=== PATIENT | female | born 1975 | race African-American/Black ===

== ENCOUNTER 2018-11-18 16:03 | Inpatient (IN) ==
[2018-11-18] MEDS ORDERED: SODIUM CHLORIDE 0.9% 1000ML 1,000 ML IV ONE (16:19)
[2018-11-18] MEDS ORDERED: GI COCKTAIL ED USE PO ONE (16:19)
[2018-11-18] MEDS ORDERED: ASPIRIN CHEW 324 MG PO STA (16:19)
--- NOTE | 2018-11-18 16:34 | XRay Report ---
XR chest 1V portable CLINICAL HISTORY: Atypical chest pain COMPARISON STUDY: No previous studies for comparison. FINDINGS: The cardiac and mediastinal contours are normal. There is no evidence of focal pulmonary co nsolidation. There is no evidence of failure. No pleural effusions are visualized.[ IMPRESSION: No active disease in the chest. Electronically signed by: Kishan Rome M.D. 11/18/2018 4:32 PM
[2018-11-18] MEDS ORDERED: NITROGLYCERIN SL 0.4 MG/TAB TAB SL STA (17:05)
[2018-11-18 17:55] LABS: Basophils # (auto) 0.02 K/uL (0-0.2); Basophils % (auto) 0.3 %; Eosinophils # (auto) 0.04 K/uL (0-0.5); Eosinophils % (auto) 0.6 %; Hematocrit (blood only) 41.6 % (37-47); Hemoglobin 14.2 g/dL (12.0-16.0); Immature Granulocytes # (auto) 0.01 K/uL (0.00-0.02); Immature Granulocytes % (auto) 0.1 %; Lymphocytes # (auto) 1.71 K/uL (1.2-3.4); Lymphocytes % (auto) 23.7 %; Mean Corpuscular Hgb Conc 34.1 g/dL (32-36); Mean Corpuscular Volume 89.3 fL (80-100); Mean Platelet Volume 10.7 fL (7.4-10.4); Monocytes # (auto) 0.43 K/uL (0.11-0.59); Neutrophils % (auto) 69.3 %; Platelet Count 179 K/uL (130-400); RDW Coefficient of Variation 13.4 % (11.5-14.5); RDW Standard Deviation 43.6 fL (36.4-46.3); Red Blood Count 4.66 M/uL (4.2-5.4); White Blood Count 7.21 K/uL (4.8-10.8)
[2018-11-18 18:14] LABS: Albumin Level 4.1 gm/dl (3.4-5.0); BUN Creatinine Ratio 11.1 (10-20); Calcium 9.6 mg/dl (8.5-10.1); Creatinine Clr Calc Pharmacy 112.2 ml/min; Est GFR (African American) 113.4; Est GFR (Non-African American) 97.8; Potassium 3.9 mmol/L (3.5-5.1)
[2018-11-18] MEDS ORDERED: Heparin IV Low Dose WITH Bolus STA (18:23)
[2018-11-18 18:24] LABS: Albumin Globulin Ratio 0.9 (0.9-2); Bilirubin,Total 0.3 mg/dl (0.2-1); Globulin 4.5 gm/dl (2.5-4.0); Total Protein 8.6 gm/dl (6.4-8.2); Troponin I 2.52 ng/ml (0-0.045)
[2018-11-18] MEDS ORDERED: METOPROLOL TARTRATE 1 MG/ML VIAL IV STA (18:29)
[2018-11-18] MEDS ORDERED: MoRPHine SULFATE 4 MG/ML 1 ML CARP\\VIAL IV STA (18:33)
[2018-11-18] MEDS ORDERED: fentaNYL citrate 100 MCG/2 ML VIAL IV STA (18:38)
[2018-11-18] MEDS ORDERED: HEPARIN 25000 UNIT/500 ML D5W IV ONE (19:01)
[2018-11-18 19:07] LABS: Partial Thromboplastin Ratio 0.9; Partial Thromboplastin Time 23.6 Seconds (21.0-31.0)
[2018-11-18] MEDS ORDERED: NITROGLYCERIN 2% OINTMENT 30GM TUBE EXT SCH (19:15)
--- NOTE | 2018-11-18 19:21 | History & Physical Report ---
Date of Service November 18, 2018 Assessment & Plan (1) Non-ST elevation [place] (NSTEMI): presented with chest pain, troponin 2.2 use Morphine and Nitro paste to relieve chest pain start metoprolol 25mg BID since blood pressure and HR elevated cycle troponin q6, next set at 2200 aspirin 325mg given in the ED, continue 81mg daily heparin drip low dose no bolus increase Lipitor from 40mg to 80mg ED discussed with Dr. Garcia, will keep patient NPO for cath tomorrow Dr. Garcia would like her to be chest pain free prior to cath (2) Hypertension: BP markedly elevated, patient clearly with some anxiety and distress as well as pain need to get BP down to decrease strain on heart Nitro q6 start Metoprolol 25mg BID, may need higher dosing continue Losartan 50mg daily (3) Hyperlipidemia: change Zocor to Lipitor due to NSTEMI (4) DM type 2 (diabetes mellitus, type 2): poorly controlled per patient, unsure of what her HbA1c is on Janumet, Glipizide outpatient will use Novolog SS, diabetic diet NPO after midnight for possible heart cath, so check sugars q6 (5) Atopic dermatitis: continue topical treatment (6) GERD (gastroesophageal reflux disease): continue PPI and Pepcid Full code DVT prophylaxis: heparin drip 45 minutes spent on this admission History of Present Illness Chief Complaint: I felt like I had heartburn Primary Care Provider: Rust 43 yo female with medical history of DM type II, HTN and atopic dermatitis presented to the ED today c/o epigastric burning sensation that started this morning. The patient woke up and felt normal. Shortly after eating breakfast and drinking her coffee she experienced some burning epigastric discomfort. It felt similar to her GERD and so she took her PPI and some Maalox. However, the pain did not go away like it normally does. She then had some palpitations, felt like her heart was racing so she checked her sugar and it was slightly high. The pain persisted, it radiated to her left arm and neck and jaw and she had some diaphoresis. She felt like her breathing was a little labored which was unusual. Despite these symptoms she chose to go to classes, she is working on her PhD in behavioral health. She was able to sit through class but the symptoms persisted. She went to [facility] after class and they instructed her to com to the ED. In the ED she was markedly hypertensive and had some tachycardia. EKG showed sinus tach and there were some non-specific ST changes, no ST elevations seen. CXR was normal. Troponin was 2.2 initially. Treatment was started for NSTEMI with heparin drip, Nitro paste. Dr. Garcia was contacted since the patient was having active chest pain with an elevated troponin, he requested that she be stabilized in terms of blood pressure and chest pain, would plan for heart catheterization tomorrow. The patient has never had chest pain or pressure either at rest or on exertion. She denies any family history of coronary disease. She had a history of DM type II since 2010. She follows with endocrinology and she says she cannot recall her last HbA1c but she knows it was elevated. She is on Janumet and Glipizide and her wireless sales representative recently prescribed her Jardianz but she had not started this. She has a long history of smoking, currently on Chantix, trying to quit again. At her heaviest, she would smoke 1/2 to 1 ppd. Has a history of dyslipidemia on Zocor. Allergies Allergy/AdvReac Type Severity Reaction Status Date / Time codeine Allergy Hives Unverified 11/18/18 16:36 Home Medications Home Medications Medication Instructions Recorded Confirmed Type ciclopirox 5 ml TOPICAL DAILY 11/18/18 11/18/18 History coenzyme Q10 [Co Q-10] 10 mg PO DAILY 11/18/18 11/18/18 History desonide [DesOwen] 1 applic TOPICAL BID 11/18/18 11/18/18 History famotidine [Pepcid] 40 mg PO DAILY 11/18/18 11/18/18 History fluocinonide 1 applic TOPICAL BID 11/18/18 11/18/18 History glipizide 2.5 mg PO DAILY 11/18/18 11/18/18 History losartan 50 mg PO DAILY 11/18/18 11/18/18 History multivitamin 1 tab PO DAILY 11/18/18 11/18/18 History pantoprazole 40 mg PO DAILY 11/18/18 11/18/18 History pimecrolimus [Elidel] 1 applic TOPICAL BID 11/18/18 11/18/18 History simvastatin 20 mg PO DAILY 11/18/18 11/18/18 History simvastatin 40 mg PO DAILY 11/18/18 11/18/18 History sitagliptin-metformin [Janumet] 1 tab PO BID 11/18/18 11/18/18 History valacyclovir 500 mg PO BID 11/18/18 11/18/18 History varenicline [Chantix] 1 mg PO BID 11/18/18 11/18/18 History Past Med/Surg History Medical History Hypertension Hyperlipidemia Atopic dermatitis DM type 2 (diabetes mellitus, type 2) GERD (gastroesophageal reflux disease) No significant past surgical history Family History Other DM (diabetes mellitus) HTN (hypertension) Social History Current Living Situation: Spouse Current Living Situation Comment: AT HOME WITH Other Information That Helps Us Care for You: No Feels Safe at Home: Yes Safety Concerns: Feels Safe At This Time Smoking Status: Former smoker Hx Alcohol Use: No Hx Substance Use: No Beliefs That Will Affect Care: None Preferred Language: Irish Communication Ability: Effective Medical Bill Processor Required: No Review of Systems All systems reviewed & are unremarkable except as noted in HPI & below Constitutional: + sweats, + body aches and + weakness; no fever and no chills Cardiovascular: + chest pain, + chest pain at rest, + radiating jaw, neck or arm pain, + dyspnea, + dyspnea on exertion, + palpitations and + lightheadedness ; no chest pain with activity, no dyspnea at rest, no syncope and no edema Gastrointestinal: + nausea; no abdominal pain, no vomiting, no constipation and no diarrhea/loose stools Physical Exam 2 Vital Signs (Past 24 Hours): Last Vital Signs Temp 36.8 C 11/18/18 16:19 Pulse 118 H 11/18/18 18:56 Resp 30 H 11/18/18 18:56 BP 194/112 H 11/18/18 18:56 Pulse Ox 96 11/18/18 19:00 Constitutional: WD/WN, vitals as above Eyes: PERRL, conjunctivae normal, anicteric sclerae ENMT: external ear and nose normal, oropharynx normal Neck: trachea midline, no thyromegaly Respiratory: normal respiratory effort, lungs clear to auscultation Cardiovascular: Rate/Rhythm: regular rhythm and + tachycardic Heart Sounds : normal S1 and normal S2; no murmur Vessels: normal peripheral pulses; no JVD Gastrointestinal (Abdomen): normal bowel sounds, soft, nontender, no hepatosplenomegaly Musculoskeletal: no cyanosis or clubbing, extremities motor strength 5/5 Skin: no rashes, warm and dry Neurologic: patellar DTR's 2+ bilat, sensation intact and PERRL, EOMI, accommodation nl, no face palsy, no dysarthria Lymphatic: no cervical or axillary lymphadenopathy Results & Data Laboratory Results Laboratory Results - last 24 hr 11/18/18 11/18/18 11/18/18 17:45 17:45 18:50 WBC 7.21 RBC 4.66 Hgb 14.2 Hct 41.6 MCV 89.3 MCH 30.5 MCHC 34.1 RDW Std Deviation 43.6 RDW Coeff of Froy 13.4 Plt Count 179 MPV 10.7 H Immature Gran % (Auto) 0.1 Neut % (Auto) 69.3 Lymph % (Auto) 23.7 [place] % (Auto) 6.0 Eos % (Auto) 0.6 Baso % (Auto) 0.3 Immature Gran # (Auto) 0.01 Neut # (Auto) 5.00 Lymph # (Auto) 1.71 [place] # (Auto) 0.43 Eos # (Auto) 0.04 Baso # (Auto) 0.02 APTT 23.6 PTT Ratio 0.9 Sodium 137 Potassium 3.9 Chloride 102 Carbon Dioxide 27 Anion Gap 8.0 BUN 8 Creatinine 0.74 Est Cr Clr Drug Dosing 112.2 Est GFR ( Amer) 113.4 Est GFR (Non-Af Amer) 97.8 BUN/Creatinine Ratio 11.1 Glucose 102 H POC Glucose Calcium 9.6 Total Bilirubin 0.3 AST 29 ALT 23 Alkaline Phosphatase 64 Troponin I 2.520 H* Total Protein 8.6 H Albumin 4.1 Globulin 4.5 H Albumin/Globulin Ratio 0.9 Lipase 110 11/18/18 21:09 WBC RBC Hgb Hct MCV MCH MCHC RDW Std Deviation RDW Coeff of Froy Plt Count MPV Immature Gran % (Auto) Neut % (Auto) Lymph % (Auto) [place] % (Auto) Eos % (Auto) Baso % (Auto) Immature Gran # (Auto) Neut # (Auto) Lymph # (Auto) [place] # (Auto) Eos # (Auto) Baso # (Auto) APTT PTT Ratio Sodium Potassium Chloride Carbon Dioxide Anion Gap BUN Creatinine Est Cr Clr Drug Dosing Est GFR ( Amer) Est GFR (Non-Af Amer) BUN/Creatinine Ratio Glucose POC Glucose 151 H Calcium Total Bilirubin AST ALT Alkaline Phosphatase Troponin I Total Protein Albumin Globulin Albumin/Globulin Ratio Lipase Diagnostic Findings XR chest 1V portable CLINICAL HISTORY: Atypical chest pain COMPARISON STUDY: No previous studies for comparison. FINDINGS: The cardiac and mediastinal contours are normal. There is no evidence of focal pulmonary consolidation. There is no evidence of failure. No pleural effusions are visualized.[ IMPRESSION: No active disease in the chest. ECG Indication: chest pain Rhythm: sinus tachycardia Findings: + nonspecific-ST abn Code Status & VTE Plan Code Status full code VTE Prophylaxis Plan VTE Prophylaxis will be ordered: Yes
[2018-11-18] MEDS ORDERED: Heparin IV Low Dose *NO* Bolus IV ONE (20:09)
[2018-11-18] MEDS ORDERED: SODIUM CHLORIDE 0.9% 1000ML 1,000 ML IV SCH (20:09)
[2018-11-18] MEDS ORDERED: ONDANSETRON INJ 2 MG/ML 2 ML VIAL IV PRN (20:09)
[2018-11-18] MEDS ORDERED: MoRPHine SULFATE 2 MG/ML CARP IV PRN (20:09)
[2018-11-18] MEDS ORDERED: HEPARIN LOW DOSE DEXTROSE 25,000 UNITS/500 ML IV SCH (20:23)
[2018-11-18] MEDS ORDERED: PIMECROLIMUS TOP SCH (21:00)
[2018-11-18] MEDS: DESONIDE CR 15 GM TUBE EXT SCH (21:17)
[2018-11-18] MEDS: VALACYCLOVIR HCL 500 MG TABLET PO SCH (21:18)
[2018-11-18] MEDS: INSULIN ASPART 100 UNITS/ML 3 ML PEN SC SCH (21:18)
[2018-11-18] MEDS: FLUOCINONIDE 0.05% OINT 15 GM TUBE EXT SCH (21:22)
[2018-11-18] MEDS: LORazepam 0.5 MG TAB PO PRN (21:23)
[2018-11-18] MEDS: METOPROLOL TARTRATE 25 MG TAB PO SCH (21:23)
[2018-11-18] MEDS: ACETAMINOPHEN 325 MG TAB PO PRN (21:23)
--- NOTE | 2018-11-18 23:33 | Cardiology Consultation ---
Date of Consultation November 18, 2018 Assessment & Plan (1) Non-ST elevation CT (NSTEMI): 2. Hypertension 3. Type 2 diabetes on oral therapy 4. GERD Patient here with stuttering chest pain over the preceding 10 hours prior to admission. EKG with questionable old inferior infarct and troponin climbing from 2 up to 4.85. Presentation consistent with high risk NSTEMI. Lower suspicion for stress- induced/takotsubo's cardiomyopathy. At present patient is chest pain-free, hemodynamically and electrically stable. No indication for emergent catheterization at this time. We will tentatively plan on catheterization via right radial artery in the a.m. Discussed risks, benefits, alternatives of procedure with her and her spouse she is willing to proceed. Tonight recommend improved blood pressure control and will start on nitro infusion with ideal target systolic blood pressures less than 130. Continue heparin infusion. Continue metoprolol, losartan, high intensity statin, aspirin. Continue to trend troponin until peak. Echocardiogram in the a.m. If recurrent refractory chest pain overnight please contact to discuss emergent catheterization. History of Present Illness Attending Physician: Sanchez Levy DO History of Present Illness 43-year-old female history of hypertension, type 2 diabetes, GERD, prior tobacco use here with new chest pain and climbing troponin. Cardiology consult for suspected ACS. Patient has no prior cardiac history. She reports an episode of blurry vision yesterday but was otherwise in her normal health when she went to bed last night but was reportedly diaphoretic overnight. In the a.m. with drinking coffee developed burning chest pain reminiscent of prior GERD symptoms but different in that it radiated up into her neck. Pain persisted and was later associated with numbness down her arms, nausea, pain in her back. Pain intermittent throughout the day. Eventually presented to [facility] and was referred to the emergency department. In the ED hypertensive to the 160s initially later to the 200s. Having active chest pain treated with aspirin, sublingual nitroglycerin, IV morphine, fentanyl , IV metoprolol before being started on a heparin infusion, nitro paste. Troponin initially 2.5, up to 4.85 on follow-up. EKG with evidence of old inferior infarct but no dynamic ST changes.. At time of interview on the floor still hypertensive to 170s. Chest pain-free after Ativan. Allergies Allergy/AdvReac Type Severity Reaction Status Date / Time codeine Allergy Hives Unverified 11/18/18 16:36 Home Medications Home Medications Medication Instructions Recorded Confirmed Type ciclopirox 5 ml TOPICAL DAILY 11/18/18 11/18/18 History coenzyme Q10 [Co Q-10] 10 mg PO DAILY 11/18/18 11/18/18 History desonide [DesOwen] 1 applic TOPICAL BID 11/18/18 11/18/18 History famotidine [Pepcid] 40 mg PO DAILY 11/18/18 11/18/18 History fluocinonide 1 applic TOPICAL BID 11/18/18 11/18/18 History glipizide 2.5 mg PO DAILY 11/18/18 11/18/18 History losartan 50 mg PO DAILY 11/18/18 11/18/18 History multivitamin 1 tab PO DAILY 11/18/18 11/18/18 History pantoprazole 40 mg PO DAILY 11/18/18 11/18/18 History pimecrolimus [Elidel] 1 applic TOPICAL BID 11/18/18 11/18/18 History simvastatin 20 mg PO DAILY 11/18/18 11/18/18 History simvastatin 40 mg PO DAILY 11/18/18 11/18/18 History sitagliptin-metformin [Janumet] 1 tab PO BID 11/18/18 11/18/18 History valacyclovir 500 mg PO BID 11/18/18 11/18/18 History varenicline [Chantix] 1 mg PO BID 11/18/18 11/18/18 History Patient History Medical History Hypertension Hyperlipidemia Atopic dermatitis DM type 2 (diabetes mellitus, type 2) GERD (gastroesophageal reflux disease) No significant past surgical history Social History Current Living Situation: Spouse Current Living Situation Comment: AT HOME WITH Other Information That Helps Us Care for You: No Feels Safe at Home: Yes Safety Concerns: Feels Safe At This Time Smoking Status: Former smoker Hx Alcohol Use: No Hx Substance Use: No Beliefs That Will Affect Care: None Preferred Language: Romanian Communication Ability: Effective Production Engineer Track Required: No Review of Systems 10 point review of systems was completed and was otherwise negative unless stated in HPI Physical Exam 2 Vital Signs (Past 24 Hours): Last Vital Signs Temp 37.2 C 11/18/18 20:00 Pulse 110 H 11/18/18 20:00 Resp 20 11/18/18 20:00 BP 195/129 H 11/18/18 20:00 Pulse Ox 96 11/18/18 20:00 Physical Exam: General: Comfortable, no acute distress Eyes: Sclerae anicteric, extraocular movements intact HENT: Oropharynx clear mucous membranes moist Neck: Normal carotid upstrokes, no bruits. No JVD. Lungs: Clear to auscultation bilaterally, no rhonchi or wheezes Cardiac: Regular rate and rhythm, no murmurs, rubs or gallops. Vascular: 2+ radial, DP and PT pulses. No varicosities. Abdomen: Soft, nontender, nondistended, positive bowel sounds. Extremities: Well perfused, no peripheral edema Skin: No rashes or lesions. Neuro: Nonfocal Psych: Alert orient x3, normal affect and mood
[2018-11-18] MEDS ORDERED: NITROGLYCERIN/D5W 100MCG/ML 250 ML IV PRN (23:36)
--- NOTE | 2018-11-18 23:46 | Emergency Department Note ---
Entered by Yusra Lafleur acting as a scribe for Nkiko Parker DO History of Present Illness General Chief complaint: Chest Pain Source: patient Mode of arrival: EMS Limitations: no limitations History of Present Illness Onset (ago): hour(s) 6 Location: chest Radiation: non-radiation Pain Consistency: + constant Quality: + burning, + aching and + dull Relieved By: + medication Exacerbated By: + none Associated symptoms: + diaphoresis, + nausea/vomiting and + other (+left arm pain) Treatments prior to arrival: aspirin and other (Maalox, Nitro) The patient is a 43 year old female who presents to the Emergency Room with complaints of persistent chest pain. She states yesterday she experienced a visual disturbance, so she rested and it went away. Last night she was told by family that she had been sleep walking. Today she got up around 0630 and did her normal morning routine. After she took her morning medications, she experienced chest pain. She took Maalox but experienced no relief. She describes the pain as feeling like a dull ache with a little bit of burning. The pain has mostly resolved now but the patient notes she felt shaky, diaphoretic, hot and nauseous this morning when the pain started. She also experienced some left arm pain. She went to class today, but states she was told by [facility] services to come here to the ED and EMS was called. She was given Aspirin and Nitro in the field with no improvement. The patient has a history of hypertension and hyperlipidemia. She is a current smoker who is actively on Chantix and trying to quit. Patient denies diabetes, CAD, history of sudden at a young age, and history of clotting disorders. Patient denies swelling of calves, recent trips, history of immobilization or recent surgery, prior history of DVT, hemoptysis, history of malignancy, or control/estrogen use. Home Medications Home Medications Medication Instructions Recorded Confirmed Type ciclopirox 5 ml TOPICAL DAILY 11/18/18 11/18/18 History coenzyme Q10 [Co Q-10] 10 mg PO DAILY 11/18/18 11/18/18 History desonide [DesOwen] 1 applic TOPICAL BID 11/18/18 11/18/18 History famotidine [Pepcid] 40 mg PO DAILY 11/18/18 11/18/18 History fluocinonide 1 applic TOPICAL BID 11/18/18 11/18/18 History glipizide 2.5 mg PO DAILY 11/18/18 11/18/18 History losartan 50 mg PO DAILY 11/18/18 11/18/18 History multivitamin 1 tab PO DAILY 11/18/18 11/18/18 History pantoprazole 40 mg PO DAILY 11/18/18 11/18/18 History pimecrolimus [Elidel] 1 applic TOPICAL BID 11/18/18 11/18/18 History simvastatin 20 mg PO DAILY 11/18/18 11/18/18 History simvastatin 40 mg PO DAILY 11/18/18 11/18/18 History sitagliptin-metformin [Janumet] 1 tab PO BID 11/18/18 11/18/18 History valacyclovir 500 mg PO BID 11/18/18 11/18/18 History varenicline [Chantix] 1 mg PO BID 11/18/18 11/18/18 History Allergies Allergy/AdvReac Type Severity Reaction Status Date / Time codeine Allergy Hives Unverified 11/18/18 16:36 Past Med/Surg History Medical History Hypertension Hyperlipidemia Atopic dermatitis DM type 2 (diabetes mellitus, type 2) GERD (gastroesophageal reflux disease) No significant past surgical history Social History Current Living Situation: Spouse Current Living Situation Comment: AT HOME WITH Other Information That Helps Us Care for You: No Feels Safe at Home: Yes Safety Concerns: Feels Safe At This Time Smoking Status: Former smoker Hx Alcohol Use: No Hx Substance Use: No Beliefs That Will Affect Care: None Preferred Language: Namibian Communication Ability: Effective Butter Fat Tester Required: No Review of Systems See HPI for pertinent positives & negatives. and A total of 10 systems reviewed and were otherwise negative Physical Exam Vital Signs Vital Signs - 24 hr 11/18/18 16:19 11/18/18 17:53 11/18/18 17:54 Temperature 36.8 C Temperature Source Oral Sepsis Recent Fever Within 48 Hours No Sepsis Action Taken by Nursing No Action Required Pulse Rate 100 H 101 H 99 H Pulse Rate [Right Finger] 94 H Pulse Rate from SpO2 Sensor 102 H Pulse Rhythm Regular Regular Pulse Rhythm [Right Finger] Pulse Strength Normal Pulse Strength [Right Finger] Respiratory Rate 19 Respiratory Effort / Characteristics Non-Labored Respiratory Depth Normal Respiratory Pattern Regular Blood Pressure 165/109 H 180/118 H Blood Pressure [Left Arm] 180/118 H Blood Pressure Mean 127 138 Blood Pressure Mean [Left Arm] 138 Blood Pressure Position [Left Arm] Pulse Oximetry 98 97 Oxygen Delivery Method Room Air Room Air 11/18/18 18:45 11/18/18 18:50 11/18/18 18:54 Temperature Temperature Source Sepsis Recent Fever Within 48 Hours Sepsis Action Taken by Nursing Pulse Rate 135 H 121 H 129 H Pulse Rate [Right Finger] Pulse Rate from SpO2 Sensor Pulse Rhythm Pulse Rhythm [Right Finger] Pulse Strength Pulse Strength [Right Finger] Respiratory Rate 21 30 H 26 H Respiratory Effort / Characteristics Respiratory Depth Respiratory Pattern Blood Pressure 198/113 H 199/120 H Blood Pressure [Left Arm] Blood Pressure Mean 141 146 Blood Pressure Mean [Left Arm] Blood Pressure Position [Left Arm] Pulse Oximetry Oxygen Delivery Method 11/18/18 18:56 11/18/18 19:00 11/18/18 19:01 Temperature Temperature Source Sepsis Recent Fever Within 48 Hours Sepsis Action Taken by Nursing Pulse Rate 118 H 113 H 111 H Pulse Rate [Right Finger] Pulse Rate from SpO2 Sensor 114 H 114 H 113 H Pulse Rhythm Pulse Rhythm [Right Finger] Pulse Strength Pulse Strength [Right Finger] Respiratory Rate 30 H 23 24 Respiratory Effort / Characteristics Respiratory Depth Respiratory Pattern Blood Pressure 194/112 H 188/126 H Blood Pressure [Left Arm] Blood Pressure Mean 139 146 Blood Pressure Mean [Left Arm] Blood Pressure Position [Left Arm] Pulse Oximetry 97 96 96 Oxygen Delivery Method Room Air 11/18/18 19:05 11/18/18 19:11 11/18/18 19:15 Temperature Temperature Source Sepsis Recent Fever Within 48 Hours Sepsis Action Taken by Nursing Pulse Rate 108 H 102 H 105 H Pulse Rate [Right Finger] Pulse Rate from SpO2 Sensor 108 H 101 H 105 H Pulse Rhythm Pulse Rhythm [Right Finger] Pulse Strength Pulse Strength [Right Finger] Respiratory Rate 23 12 26 H Respiratory Effort / Characteristics Respiratory Depth Respiratory Pattern Blood Pressure 201/111 H 200/115 H 170/117 H Blood Pressure [Left Arm] Blood Pressure Mean 141 143 134 Blood Pressure Mean [Left Arm] Blood Pressure Position [Left Arm] Pulse Oximetry 96 98 98 Oxygen Delivery Method Room Air 11/18/18 19:35 11/18/18 20:00 11/18/18 23:26 Temperature 37.2 C 37.1 C Temperature Source Oral Oral Sepsis Recent Fever Within 48 Hours Sepsis Action Taken by Nursing Pulse Rate 106 H Pulse Rate [Right Finger] 110 H 89 Pulse Rate from SpO2 Sensor Pulse Rhythm Pulse Rhythm [Right Finger] Regular Regular Pulse Strength Pulse Strength [Right Finger] Normal Respiratory Rate 21 20 20 Respiratory Effort / Characteristics Non-Labored Spontaneous Non-Labored Spontaneous Respiratory Depth Normal Normal Respiratory Pattern Regular Regular Blood Pressure 185/123 H Blood Pressure [Left Arm] 195/129 H 171/112 H Blood Pressure Mean Blood Pressure Mean [Left Arm] 151 131 Blood Pressure Position [Left Arm] Sitting Sitting Pulse Oximetry 98 96 97 Oxygen Delivery Method Room Air Room Air Room Air GENERAL: Sitting up in bed, alert, disheveled appearing, well nourished, no distress, non-toxic EYE EXAM: normal conjunctiva. OROPHARYNX: no exudate, no erythema, lips, buccal mucosa, and tongue normal and mucous membranes are moist NECK: supple, no nuchal rigidity, no adenopathy, non-tender LUNGS: Clear to auscultation. Normal chest wall mechanics HEART: no murmurs, S1 normal and S2 normal ABDOMEN: abdomen soft, non-tender, normo-active bowel, sounds, no masses, no rebound or guarding. BACK: Back is symmetrical on inspection and there is no deformity, no midline tenderness, no CVA tenderness. SKIN: no rashes and no bruising UPPER EXTREMITIES: upper extremities are grossly normal. LOWER EXTREMITIES: No pitting edema. NEURO EXAM: Normal sensorium, cranial nerves II-XII intact, normal speech, no weakness of arms, no weakness of legs. Gross sensation intact. Course ED COURSE: Vital signs were reviewed and showed the patient is tachycardic. The patients medical record was reviewed The above diagnostic studies were performed and reviewed. ED treatments and interventions as stated above. 1612: The patient was evaluated in room C3. A complete history and physical examination was performed. 1656: I reevaluated the patient. She states she has had no improvement in her symptoms. 1734: I reevaluated the patient. Nursing is trying to get an IV on the patient. 1832: I discussed the patients case with Dr. Garcia, [facility] Interventional Cardiology. The patient will be further evaluated. 1835: Upon reevaluation, the patient is resting comfortably. I discussed my findings with the patient and she understands and agrees with the treatment plan. 1845: I discussed the patients case with Dr. Levy, [facility] Hospitalist. The patient will be further evaluated. 1910: I reevaluated the patient. She is pain free. Based on the patients age, coexisting illnesses, exam and lab findings the decision to treat as an inpatient was made. The patient remained stable while under my care. The patient will be evaluated for further management. Consultations Consultation #1: I discussed the patients case with Dr. Garcia, [facility] Interventional Cardiology. The patient will be further evaluated. Time: 18:32 Consultation #2: [facility] The patient will be further evaluated. Time: 18:45 Administered Medications Acetaminophen (Tylenol) 650 mg PO Q4H PRN PRN Reason: Pain or Fever Stop: 12/18/18 20:08 Last Admin: 11/18/18 21:23 Dose: 650 mg Desonide (Desowen 0.05%) 1 appln EXT BID [facility] Stop: 12/18/18 20:59 Last Admin: 11/18/18 21:17 Dose: Not Given Fluocinonide (Lidex 0.5%) 1 appln EXT BID [facility] Stop: 12/18/18 20:59 Last Admin: 11/18/18 21:22 Dose: 1 appln Sodium Chloride (Nss 1000ml) 1,000 mls @ 80 mls/hr IV .[id number] [facility] Stop: 12/18/18 20:08 Last Admin: 11/18/18 21:23 Dose: 80 mls/hr Heparin Sodium/Dextrose (Heparin Sodium/Dextrose) 25,000 units in 500 mls @ 18 mls/hr IV .Q24H [facility]; Protocol Stop: 12/18/18 20:22 Last Admin: 11/18/18 21:22 Dose: 900 units/hr, 18 mls/hr Insulin Aspart (Novolog Flexpen) 0 units SC ACHS [facility] Stop: 12/18/18 20:59 Last Admin: 11/18/18 21:18 Dose: Not Given Lorazepam (Ativan) 0.5 mg PO Q8 PRN PRN Reason: Anxiety Stop: 12/18/18 20:08 Last Admin: 11/18/18 21:23 Dose: 0.5 mg Metoprolol Tartrate (Lopressor) 25 mg PO BID [facility] Stop: 12/18/18 20:59 Last Admin: 11/18/18 21:23 Dose: 25 mg Miscellaneous (Order Awaiting Action) 1 ea N/A QS [facility] Stop: 12/19/18 00:00 Last Admin: 11/18/18 22:21 Dose: Not Given Valacyclovir HCl (Valtrex) 500 mg PO BID [facility] Stop: 11/28/18 20:59 Last Admin: 11/18/18 21:18 Dose: Not Given Discontinued Medications Al Hydrox/Mg Hydrox/Simethicone () 1 dose PO ONE ONE Stop: 11/18/18 16:20 Last Admin: 11/18/18 16:51 Dose: 1 dose Aspirin (Aspirin) 324 mg PO NOW [facility] Stop: 11/18/18 16:20 Last Admin: 11/18/18 16:38 Dose: Not Given Fentanyl Citrate (Fentanyl Citrate) 50 mcg IV NOW [facility] Stop: 11/18/18 18:39 Last Admin: 11/18/18 18:53 Dose: 50 mcg Heparin Sodium/Dextrose () 1 ea N/A NOW [facility]; Protocol Stop: 11/18/18 18:24 Last Admin: 11/18/18 19:04 Dose: Not Given Heparin Sodium/Dextrose (Heparin Sodium/Dextrose) Confirm Administered Dose 25, 000 units IV .STK-MED ONE Stop: 11/18/18 19:02 Last Admin: 11/18/18 19:02 Dose: 18 ml Sodium Chloride (Nss 1000ml) 1,000 mls @ 999 mls/hr IV .Q1H1M ONE Stop: 11/18/18 17:19 Last Infusion: 11/18/18 19:27 Dose: 0 mls/hr Admin: 11/18/18 17:55 Dose: 999 mls/hr Metoprolol Tartrate (Lopressor) 5 mg IV NOW [facility] Stop: 11/18/18 18:30 Last Admin: 11/18/18 18:53 Dose: 5 mg Morphine Sulfate (Morphine Sulfate) 4 mg IV NOW [facility] Stop: 11/18/18 18:34 Last Admin: 11/18/18 18:45 Dose: Not Given Nitroglycerin (Nitrostat) 0.4 mg SL NOW [facility] Stop: 11/18/18 17:06 Last Admin: 11/18/18 17:55 Dose: 0.4 mg Nitroglycerin (Nitro-Bid 2%) 2 inch EXT Q6H [facility] Stop: 12/18/18 19:14 Last Admin: 11/18/18 19:17 Dose: 2 inch Medical Decision Making Differential Diagnosis Differential diagnoses includes but is not limited to acute coronary syndrome, myocardial infarction, pericarditis, pulmonary embolus, aortic dissection, pneumonia, pneumothorax, musculoskeletal, shingles, esophageal. Medical Records Attestation: I reviewed the patient's medical records. Home Medications Current Medication List: was personally reviewed by me Laboratory Data Attestation: I reviewed the patient's lab results. Result diagrams: 11/18/18 17:45 11/18/18 17:45 Lab Results 11/18/18 11/18/18 11/18/18 Range/Units 17:45 17:45 18:50 WBC 7.21 (4.8-10.8) K/uL RBC 4.66 (4.2-5.4) M/uL Hgb 14.2 (12.0-16.0) g/dL Hct 41.6 (37-47) % MCV 89.3 (80-100) fL MCH 30.5 (25-34) pg MCHC 34.1 (32-36) g/dL RDW Std Deviation 43.6 (36.4-46.3) fL RDW Coeff of Froy 13.4 (11.5-14.5) % Plt Count 179 (130-400) K/uL MPV 10.7 H (7.4-10.4) fL Immature Gran % (Auto) 0.1 % Neut % (Auto) 69.3 % Lymph % (Auto) 23.7 % Hale % (Auto) 6.0 % Eos % (Auto) 0.6 % Baso % (Auto) 0.3 % Immature Gran # (Auto) 0.01 (0.00-0.02) K/uL Neut # (Auto) 5.00 (1.4-6.5) K/uL Lymph # (Auto) 1.71 (1.2-3.4) K/uL Hale # (Auto) 0.43 (0.11-0.59) K/uL Eos # (Auto) 0.04 (0-0.5) K/uL Baso # (Auto) 0.02 (0-0.2) K/uL APTT 23.6 (21.0-31.0) Seconds PTT Ratio 0.9 Sodium 137 (136-145) mmol/L Potassium 3.9 (3.5-5.1) mmol/L Chloride 102 (98-107) mmol/L Carbon Dioxide 27 (21-32) mmol/L Anion Gap 8.0 (3-11) BUN 8 (7-18) mg/dl Creatinine 0.74 (0.6-1.2) mg/dl Est Cr Clr Drug Dosing 112.2 ml/min Est GFR ( Amer) 113.4 Est GFR (Non-Af Amer) 97.8 BUN/Creatinine Ratio 11.1 (10-20) Glucose 102 H (70-99) mg/dl POC Glucose (70-99) Calcium 9.6 (8.5-10.1) mg/dl Total Bilirubin 0.3 (0.2-1) mg/dl AST 29 (15-37) U/L ALT 23 (12-78) U/L Alkaline Phosphatase 64 (45-117) U/L Troponin I 2.520 H* (0-0.045) ng/ml Total Protein 8.6 H (6.4-8.2) gm/dl Albumin 4.1 (3.4-5.0) gm/dl Globulin 4.5 H (2.5-4.0) gm/dl Albumin/Globulin Ratio 0.9 (0.9-2) Lipase 110 (73-393) U/L 11/18/18 11/18/18 Range/Units 21:09 21:54 WBC (4.8-10.8) K/uL RBC (4.2-5.4) M/uL Hgb (12.0-16.0) g/dL Hct (37-47) % MCV (80-100) fL MCH (25-34) pg MCHC (32-36) g/dL RDW Std Deviation (36.4-46.3) fL RDW Coeff of Froy (11.5-14.5) % Plt Count (130-400) K/uL MPV (7.4-10.4) fL Immature Gran % (Auto) % Neut % (Auto) % Lymph % (Auto) % Hale % (Auto) % Eos % (Auto) % Baso % (Auto) % Immature Gran # (Auto) (0.00-0.02) K/uL Neut # (Auto) (1.4-6.5) K/uL Lymph # (Auto) (1.2-3.4) K/uL Hale # (Auto) (0.11-0.59) K/uL Eos # (Auto) (0-0.5) K/uL Baso # (Auto) (0-0.2) K/uL APTT (21.0-31.0) Seconds PTT Ratio Sodium (136-145) mmol/L Potassium (3.5-5.1) mmol/L Chloride (98-107) mmol/L Carbon Dioxide (21-32) mmol/L Anion Gap (3-11) BUN (7-18) mg/dl Creatinine (0.6-1.2) mg/dl Est Cr Clr Drug Dosing ml/min Est GFR ( Amer) Est GFR (Non-Af Amer) BUN/Creatinine Ratio (10-20) Glucose (70-99) mg/dl POC Glucose 151 H (70-99) Calcium (8.5-10.1) mg/dl Total Bilirubin (0.2-1) mg/dl AST (15-37) U/L ALT (12-78) U/L Alkaline Phosphatase (45-117) U/L Troponin I 4.850 H* (0-0.045) ng/ml Total Protein (6.4-8.2) gm/dl Albumin (3.4-5.0) gm/dl Globulin (2.5-4.0) gm/dl Albumin/Globulin Ratio (0.9-2) Lipase (73-393) U/L Imaging Data Radiologist's Impression: Radiology results as stated below per my review and the radiologist's interpretation: XR chest 1V portable CLINICAL HISTORY: Atypical chest pain COMPARISON STUDY: No previous studies for comparison. FINDINGS: The cardiac and mediastinal contours are normal. There is no evidence of focal pulmonary consolidation. There is no evidence of failure. No pleural effusions are visualized.[ IMPRESSION: No active disease in the chest. Electronically signed by: Kishan Rome M.D. 11/18/2018 4:32 PM ECG Data Attestation: I personally reviewed and interpreted this ECG as follows: Indication: chest pain Rate (beats per minute): 103 Rhythm: sinus tachycardia Findings: + other (normal axis, poor baseline in V3) Comparison ECG Date: no prior available Additional Comments: 2nd EKG on 11/18/18: Sinus tachycardia, rate of 113, normal axis, poor baseline. Blood Pressure Blood Pressure Findings: Elevated blood pressure Blood Pressure Disposition: further management by hospitalist ALIZE Narrative Patient is a 43-year-old female who presents the ER for midsternal chest pain which she describes as a dull persistent pain which is been present since 6 AM. She is brought in by EMS given aspirin and nitro without improvement. Labs are obtained and showed no significant leukocytosis or anemia. BMP was unremarkable. Troponin was elevated at 2. Lipase is normal. Patient was was an extremely difficult stick blood work was eventually obtained. She was given a wall nitro without any improvement of her symptoms. Chest x-ray was unremarkable. EKG initially showed some nonspecific changes. Troponin resulted at 2. Patient still had some mild chest pain at this time she was updated and became more hypertensive and tachycardic and she was extremely anxious. She was given Lopressor, Nitropaste and fentanyl. She had complete resolution of her symptoms. Just prior to this I discussed case with Dr. Garcia from interventional cardiology. He recommended and agreed with the treatment for resolution of the pain. If pain resolves he will catheter tomorrow. If not he will catheter tonight. Discussed with the hospitalist. Patient was given a bolus of IV heparin and placed on a heparin drip IV. Impression & Plan Non-ST elevation OK (NSTEMI) Critical Care Time I have personally spent greater than 75 minutes of critical care time in the direct management of this patient. This includes bedside care, interpretation of diagnostic studies, and testing, discussion with consultants, patient, and family members, and other required patient management activities. This 75 minutes is in excess of all separately billable procedures. Critical Care Time: Yes Total Critical Care Time: 35 Discharge Plan Visit Data *Final* Discharge Date/Time: 11/18/18 19:35 Chief Complaint: Chest Pain ED Provider: Nikko Parker Discharge Problem: Non-ST elevation OK (NSTEMI) Patient Disposition: Admitted As Inpatient Discharge Instructions Interventions: ED Discharge Assessment Last Done: 11/18/18 19:35 The scribe's documentation has been prepared under my direction and personally reviewed by me in its entirety. I confirm that the note above accurately reflects all work, treatment, procedures, and medical decision making performed by me.
[2018-11-19] MEDS ORDERED: NITROGLYCERIN 2% OINTMENT 30GM TUBE EXT SCH
[2018-11-19] MEDS: ACETAMINOPHEN 325 MG TAB PO PRN ×5 (00:14→20:03)
[2018-11-19 01:22] LABS: Partial Thromboplastin Ratio 1.1; Partial Thromboplastin Time 30.4 Seconds (21.0-31.0)
[2018-11-19] MEDS ORDERED: HEPARIN IV BOLUS 4,500 UNITS in SYRINGE 0 ML IV ONE (01:45)
[2018-11-19 08:07] LABS: Basophils # (auto) 0.01 K/uL (0-0.2); Basophils % (auto) 0.2 %; Eosinophils # (auto) 0.05 K/uL (0-0.5); Eosinophils % (auto) 0.8 %; Hematocrit (blood only) 38.7 % (37-47); Immature Granulocytes # (auto) 0.01 K/uL (0.00-0.02); Immature Granulocytes % (auto) 0.2 %; Lymphocytes # (auto) 1.65 K/uL (1.2-3.4); Lymphocytes % (auto) 26.1 %; Mean Corpuscular Hgb Conc 33.6 g/dL (32-36); Mean Corpuscular Volume 88.8 fL (80-100); Mean Platelet Volume 10.5 fL (7.4-10.4); Monocytes # (auto) 0.72 K/uL (0.11-0.59); Monocytes % (auto) 11.4 %; Neutrophils # (auto) 3.89 K/uL (1.4-6.5); Neutrophils % (auto) 61.3 %; Platelet Count 174 K/uL (130-400); RDW Coefficient of Variation 13.3 % (11.5-14.5); RDW Standard Deviation 43.4 fL (36.4-46.3); Red Blood Count 4.36 M/uL (4.2-5.4); White Blood Count 6.33 K/uL (4.8-10.8)
[2018-11-19 08:27] LABS: Partial Thromboplastin Ratio 1.7
[2018-11-19 08:30] LABS: Partial Thromboplastin Time 45.5 Seconds (21.0-31.0)
[2018-11-19 08:33] LABS: Estimated Average Glucose 166 mg/dl
[2018-11-19 08:40] LABS: BUN Creatinine Ratio 9.5 (10-20); Calcium 8.9 mg/dl (8.5-10.1); Creatinine Clr Calc Pharmacy 125.7 ml/min; Est GFR (African American) 123.6; Est GFR (Non-African American) 106.7; Potassium 3.8 mmol/L (3.5-5.1)
[2018-11-19 08:52] LABS: Troponin I 5.42 ng/ml (0-0.045)
[2018-11-19] MEDS ORDERED: HEPARIN IV BOLUS 3,000 UNITS in SYRINGE 0 ML IV ONE (09:00)
[2018-11-19] MEDS ORDERED: LOSARTAN POTASSIUM 50 MG TAB PO SCH (09:00)
[2018-11-19] MEDS ORDERED: SIMVASTATIN 40 MG TAB PO SCH (09:00)
[2018-11-19] MEDS: FAMOTIDINE 20 MG TAB PO SCH ×2 (09:01→09:32)
[2018-11-19] MEDS: PANTOprazole 40 MG TAB PO SCH (09:01)
[2018-11-19] MEDS: VALACYCLOVIR HCL 500 MG TABLET PO SCH ×2 (09:02→21:13)
[2018-11-19] MEDS: METOPROLOL TARTRATE 25 MG TAB PO SCH (09:04)
[2018-11-19] MEDS: ASPIRIN 81 MG ECTAB PO SCH (09:04)
[2018-11-19] MEDS: ATORVASTATIN 40 MG TAB PO SCH (09:04)
[2018-11-19] MEDS: DESONIDE CR 15 GM TUBE EXT SCH ×2 (09:05→21:18)
[2018-11-19] MEDS: INSULIN ASPART 100 UNITS/ML 3 ML PEN SC SCH ×4 (09:29→21:08)
[2018-11-19] MEDS ORDERED: Nursing to Pharmacy Communication ONE (09:32)
[2018-11-19] MEDS: FLUOCINONIDE 0.05% OINT 15 GM TUBE EXT SCH ×2 (10:13→21:17)
[2018-11-19] MEDS ORDERED: fentaNYL citrate 100 MCG/2 ML VIAL ONE ×2 (11:56→12:39)
[2018-11-19] MEDS ORDERED: HEPARIN (PORCINE) 1000 UNIT/ML 10 ML (CATH LAB USE ONLY) ONE (11:56)
[2018-11-19] MEDS ORDERED: NITROGLYCERIN/D5W 100MCG/ML 20ML SYR ONE (11:56)
[2018-11-19] MEDS ORDERED: MIDAZOLAM HCL 1 MG/ML 2ML VIAL ONE ×2 (11:56→12:38)
[2018-11-19] MEDS ORDERED: NiCARDipine HCL INJ 2.5 MG/ML 10 ML AMP ONE (11:56)
[2018-11-19] MEDS ORDERED: LIDOCAINE HCL 1% 20 ML VIAL ONE (12:22)
[2018-11-19] MEDS ORDERED: TICAGRELOR 90 MG TAB PO ONE (13:19)
--- NOTE | 2018-11-19 13:21 | Pre Anesthesia Assessment ---
Date of Service November 19, 2018 Pre Sedation Assessment Vital Signs Temp Pulse Pulse Resp BP BP Pulse Ox 11/19/18 11:49 37.5 C 78 18 148/95 H 96 11/19/18 07:32 80 18 169/102 H 95 11/19/18 03:32 37.1 C 82 20 154/101 H 97 11/19/18 01:46 85 20 152/94 H 95 11/19/18 00:45 90 20 158/93 H 97 11/19/18 00:20 86 145/87 H 11/18/18 23:26 37.1 C 89 20 171/112 H 97 11/18/18 20:00 37.2 C 110 H 20 195/129 H 96 11/18/18 19:35 106 H 21 185/123 H 98 11/18/18 19:15 105 H 26 H 170/117 H 98 11/18/18 19:11 102 H 12 200/115 H 98 11/18/18 19:05 108 H 23 201/111 H 96 11/18/18 19:01 111 H 24 96 11/18/18 19:00 113 H 23 188/126 H 96 11/18/18 18:56 118 H 30 H 194/112 H 97 11/18/18 18:54 129 H 26 H 199/120 H 11/18/18 18:50 121 H 30 H 198/113 H 11/18/18 18:45 135 H 21 11/18/18 17:54 99 H 94 H 19 180/118 H 97 11/18/18 17:53 101 H 23 180/118 H 11/18/18 16:19 36.8 C 100 H 19 165/109 H 98 Cardiovascular RRR, no murmur, no edema Respiratory normal respiratory effort, lungs clear to auscultation Pre-Sedation Airway Assessment Smoking Status: Former smoker Hx Sleep Apnea: No Hx Difficult Intubation: No Short, Thick Neck: No Thyromental Distance: > or= 3.5 Finger Breadths Oral Cavity: + WNL Mallampati Class: III Procedure Planning Contraindications for Sedation: none Current Medications Reviewed: Yes Notes The planned sedation has been discussed with the patient. Informed Consent was obtained. I have identified the patient, determined the appropriateness of sedation and have assessed the patient immediately prior to the procedure. All medicine(s) and interventions are by my order.
--- NOTE | 2018-11-19 13:22 | Post Anesthesia Assessment ---
Date of Service November 19, 2018 Post Sedation Assessment Vital Signs Temp Pulse Pulse Resp BP BP Pulse Ox 11/19/18 11:49 37.5 C 78 18 148/95 H 96 11/19/18 07:32 80 18 169/102 H 95 11/19/18 03:32 37.1 C 82 20 154/101 H 97 11/19/18 01:46 85 20 152/94 H 95 11/19/18 00:45 90 20 158/93 H 97 11/19/18 00:20 86 145/87 H 11/18/18 23:26 37.1 C 89 20 171/112 H 97 11/18/18 20:00 37.2 C 110 H 20 195/129 H 96 11/18/18 19:35 106 H 21 185/123 H 98 11/18/18 19:15 105 H 26 H 170/117 H 98 11/18/18 19:11 102 H 12 200/115 H 98 11/18/18 19:05 108 H 23 201/111 H 96 11/18/18 19:01 111 H 24 96 11/18/18 19:00 113 H 23 188/126 H 96 11/18/18 18:56 118 H 30 H 194/112 H 97 11/18/18 18:54 129 H 26 H 199/120 H 11/18/18 18:50 121 H 30 H 198/113 H 11/18/18 18:45 135 H 21 11/18/18 17:54 99 H 94 H 19 180/118 H 97 11/18/18 17:53 101 H 23 180/118 H 11/18/18 16:19 36.8 C 100 H 19 165/109 H 98 Recovery Score Activity: Moves 4 extremities Respiration: Deep Breath/Cough Circulation: +/-20% PreAnes Value Consciousness: Fully Awake Oxygen Saturation: O2 needed for >90% Discharge Sedation Level of Care: Fast Track Phase II Post Sedation Plan On clinical assessment, the patient appears to have tolerated the sedation without complications. Patient is recovering as anticipated. Patient will continue to be monitored by nursing and may be discharged when sedation discharge criteria are met per below protocol. Upon Completions of procedure and additional 15 minutes continue every 5 minute vital signs and the P.A.R. score; then discharge to a Phase I or Fast Track to Phase II per the following guidelines: * Discharge Patient to appropriate Phase II area if PAR is 8 or greater or return to pre- procedure baseline. The post - procedure orders will be as directed. * If PAR score is less than 8 or not return to pre-procedure baseline then patient will follow Phase I monitoring till PAR is reached for Phase II. The Phase I may be done in procedure room or may call to secure a Phase I area. * �If naloxone or flumazenil are used for reversal, hold in Phase I for continued monitoring from when last reversal dose was given for a minimum of 60 minutes or longer pending the nurse and/or physician discretion of patient condition before discharge to Phase II.� Please call the Sedation Physician to re-evaluate and complete post-note for discharge to Phase II area. Do NOT discharge from procedure sedation or Phase 1 until post- sedation evaluation note is complete by procedure /sedation MD Sedation Discharge Instructions to be given to the patient at discharge to home.
--- NOTE | 2018-11-19 13:38 | Cardiac Catheterization ---
Cardiac Cath Procedure Full Procedure Date November 19, 2018 Pre-Procedure Diagnosis Pre-Procedure Diagnosis: Non STEMI AUC Score AUC Score: 8 Post-Procedure Diagnosis Post-Procedure Diagnosis: Severe CAD, Successful PCI and Normal Intracardiac Pressures Procedure(s) Performed Procedure(s) Performed: Coronary Angiography, Left Heart Cath, Drug Eluting Stent and IVUS Voice Teacher Navdeep Garcia MD Sterile Products Processor(s) Myra Estimated Blood Loss Estimated Blood Loss: 15 Medication(s) Medication(s): Fentanyl, Heparin, Lidocaine 1%, Nicardipine and Nitroglycerin Medication(s): Ticagrelor Summary of Findings Indication: NSTEMI Access: 6 Finnish right radial artery Catheters: Alex, EBU 3.5 guide Findings: LM -short, almost separate ostium LAD -large caliber vessel, focal 80-90% hazy stenosis just after takeoff of large septal in early�mid segment, remainder of mid, distal segment largely free of disease and wraps around the apex. Small first diagonal, moderate second diagonal without significant disease Circumflex -moderate caliber vessel, mid segment luminal irregularities into large left PLB. RCA -dominant, large caliber, proximal luminal irregularities, mid segment 20-30 % at takeoff of acute marginal, luminal irregularities in right PDA LVEDP -15 -- PCI -- Antithrombotic therapy: Heparin, ticagrelor Procedure: Left main cannulated with EBU 3.5 guide Adjunct Psychology Professor 50 wire passed across lesion into distal vessel IVUS used to assess extent of disease, vessel size. Severe focal stenosis in the mid segment just after takeoff of first septal. 70-80% stenosis, MLA 3.0 mm �, visible thrombus. Mid LAD stented with 4.0 x 18 mm Boyers drug-eluting stent Stent post-dilated with 4.5 noncompliant balloon IC vasodilators administered for spasm Repeat IVUS assessment showed well expanded, well opposed stent with no evidence of edge dissection. Post procedure MONCHO 3 flow, stent well expanded with minimal residual stenosis and no apparent cardiac complications. Arterial Closure: TR band Summary: 1. Severe single vessel coronary artery disease -70-80% focal early�mid LAD stenosis with acute thrombus 2. Normal intracardiac filling pressure 3. Successful PCI of mid LAD with single drug-eluting stent (4.0 x 18 mm Boyers; postdilated with 4.5 NC). Recommendations: To PCU for continued monitoring Loaded with ticagrelor 180 mg in laboratory analyst Continue dual-antiplatelet therapy for at least one year Continue statin, and ASCVD risk factor modification Consult cardiac Rehab Hemodynamics Rest Ao:: 127/86/105 Final Ao: 153/96/121 LV: 136/15 Recommendations Recommendations: PCI without planned CABG Specimens Specimens: None Radiation Exposure (mGy) 2143 Contrast (mls) 90 Fluids (cc crystalloids) Fluids (cc crystalloids): 100 Drains Drains: None Anesthesia Moderate Procedural Complication(s) None Disposition PCU ACC Data: Patient Service Specialist Cardiac Status Clinical evaluation leading to the procedure CAD Presenation: Non STEMI Anginal Classification: CCS IV Heart Failure: No Cardiogenic Shock within 24 Hours: No Cardiac Arrest within 24 Hours: No Imaging Studies Past 6 Months: Yes Stress Studies Past 6 Months: No Diagnostic Physicians Name: Navdeep Garcia MD Status: Elective Closure Device Percutaneous Entry Location: Radial Closure Device: Radial Band Recommendations: PCI without planned CABG PCI Indication: PCI for high risk Non-GRICELDA Lesion Segment Name: Mid LAD Culprit Artery: Yes Stenosis Prior to Rx (%): 70-80 Chronic Total Occlusion: No IVUS: Yes FFR: No Pre-Procedure MONCHO Flow: 3 Previously Treated Lesion: No Lesion Complexity: Non-High/Non-C Lesion Length (mm): 12 Thrombus Present: Yes Bifurcation Lesion: No Guidewire Across Lesion: Stenosis Post-Procedure (%): 0 Post-Procedure MONCHO Flow : 3 Devices(s) Deployed: Yes Yes Intraprocedure Events Significant Disection: No Perforation: No
[2018-11-19] MEDS ORDERED: SODIUM CHLORIDE 0.9% 1000ML 1,000 ML IV SCH (13:45)
[2018-11-19] MEDS ORDERED: LABETALOL HCL IV 5 MG/ML 20ML IV STA (15:32)
[2018-11-19] MEDS ORDERED: LOSARTAN POTASSIUM 50 MG TAB PO ONE (15:35)
--- NOTE | 2018-11-19 17:06 | Cardiology Progress Note ---
Date of Service November 19, 2018 Assessment & Plan (1) Non-ST elevation [place] (NSTEMI): 2. Hypertension 3. Type 2 diabetes on oral therapy 4. GERD Patient now post PCI to LAD with single KAYLEE. She is chest pain-free. Echo shows preserved LV function. Going forward: ��Needs improved blood pressure control and will increase losartan to 100 mg daily, metoprolol to 50 mg twice daily. PRN labetalol for systolic pressures greater than 170, diastolic greater than 100 ��Continue dual antiplatelet therapy with aspirin, ticagrelor ��Continue high intensity statin. If stable overnight likely discharge to home tomorrow. Subjective 1 brief episode of chest pain this morning relieved with Tylenol. No other new symptoms. Underwent cardiac catheterization this afternoon which showed severe acute single-vessel disease involving mid LAD. Treated with a single drug-eluting stent with good angiographic result. Review of Systems 10 point review of systems was completed and was otherwise negative unless stated in HPI Physical Exam 2 Vital Signs (Past 24 Hours): Last Vital Signs Temp 37.0 C 11/19/18 15:49 Pulse 88 11/19/18 16:25 Resp 17 11/19/18 15:49 BP 164/112 H 11/19/18 16:25 Pulse Ox 95 11/19/18 15:49 Physical Exam: General: Comfortable, no acute distress Eyes: Sclerae anicteric, extraocular movements intact HENT: Oropharynx clear mucous membranes moist Neck: Normal carotid upstrokes, no bruits. No JVD. Lungs: Clear to auscultation bilaterally, no rhonchi or wheezes Cardiac: Regular rate and rhythm, no murmurs, rubs or gallops. Vascular: TR band in place over right radial artery Abdomen: Soft, nontender, nondistended, positive bowel sounds. Extremities: Well perfused, no peripheral edema Skin: No rashes or lesions. Neuro: Nonfocal Psych: Alert orient x3, normal affect and mood
--- NOTE | 2018-11-19 18:17 | Family Medicine Progress Note ---
Date of Service November 19, 2018 Assessment & Plan (1) Non-ST elevation [place] (NSTEMI): 43 yo F with h/o HTN, HLD, T2DM presenting with history of chest pain, admitted with NSTEMI NSTEMI - Catheterization today (ADDENDUM: 70-80% LAD occlusion s/p KAYLEE placement ) - Medical management with Lipitor, Losartan, Aspirin, Ticagrelor - PRN morphine, nitrate , EKG with chest pain (2) Hypertension: BP control with Losartan (3) Hyperlipidemia: (4) Type 2 diabetes mellitus: poorly controlled per patient last A1c was 8.7 in Jul. according to patient on Glipizide at home counseled patient on importance of diabetic management Insulin sliding scale, Glipizide held inpatient (5) History of tobacco use: currently on Chantix counseled on importance of maintaining tobacco free status (6) GERD (gastroesophageal reflux disease): Continue Pepcid, Protonix Supervising Physician Co-Signing Physician Notes I personally examined the patient and verified all vidal points of history and exam, discussed case, and agree with decision making with Dr Lazo Feeling okay no chest pain. She is worried about her meds interacting with her other meds, and with her reflux. Discussed the case with Dr. Garcia, and unfortunately the aspirin is a definite must. Discussed med compliance, lifestyle change, diabetes management. She was unfortunately not overly receptive to the conversation. I did my best. Vitals noted, in general she is awake and alert pleasant no distress. HEENT normocephalic atraumatic mucous membranes are moist. Breathing is unlabored no accessory muscle use good effort. Skin shows no rashes no pallor or icterus. NC/coronary artery disease�status post cath and stenting, med management, lifestyle change, better diabetes control, smoke cessation, hopefully home tomorrow. Subjective Patient seen this morning, prior to catheterization, She was experiencing non- radiating 2-3/10 upper back pain (between her shoulder blades) in addition to mild epigastric discomfort. She denies cough, sob, n/v, fevers, chills, change in stool. Constitutional: no fever and no chills Respiratory: no cough, no dyspnea and no wheezing Cardiovascular: + chest pain; no dyspnea, no syncope, no edema and no calf pain Gastrointestinal: no abdominal pain, no nausea, no vomiting and no change in stools Neurologic: no localized weakness, no tingling and no numbness Physical Exam 2 Vital Signs (Past 24 Hours): Last Vital Signs Temp 37.0 C 11/19/18 15:49 Pulse 99 H 11/19/18 17:25 Resp 17 11/19/18 15:49 BP 152/103 H 11/19/18 17:25 Pulse Ox 95 11/19/18 15:49 Constitutional: WD/WN, vitals as above no acute distress Eyes: PERRL and EOM intact bilaterally ENMT: external ear and nose normal, oropharynx normal Neck: trachea midline, no thyromegaly Respiratory: normal respiratory effort, lungs clear to auscultation Cardiovascular: RRR, no murmur, no edema Gastrointestinal (Abdomen): normal bowel sounds, soft, nontender, no hepatosplenomegaly Musculoskeletal: Head/Neck/Chest: normocephalic and head atraumatic no calf edema, erythema or tenderness Skin: no rashes, warm and dry Neurologic: PERRL, EOMI, accommodation nl, no face palsy, no dysarthria CN' s II-XI intact bilaterally and awake Psychiatric: Orientation: alert and oriented x 3 Results & Data Laboratory Results Laboratory Results WBC 6.33 K/uL (4.8-10.8) 11/19/18 07:54 RBC 4.36 M/uL (4.2-5.4) 11/19/18 07:54 Hgb 13.0 g/dL (12.0-16.0) 11/19/18 07:54 Hct 38.7 % (37-47) 11/19/18 07:54 MCV 88.8 fL (80-100) 11/19/18 07:54 MCH 29.8 pg (25-34) 11/19/18 07:54 MCHC 33.6 g/dL (32-36) 11/19/18 07:54 RDW Std Deviation 43.4 fL (36.4-46.3) 11/19/18 07:54 RDW Coeff of Froy 13.3 % (11.5-14.5) 11/19/18 07:54 Plt Count 174 K/uL (130-400) 11/19/18 07:54 MPV 10.5 fL (7.4-10.4) H 11/19/18 07:54 Immature Gran % (Auto) 0.2 % 11/19/18 07:54 Neut % (Auto) 61.3 % 11/19/18 07:54 Lymph % (Auto) 26.1 % 11/19/18 07:54 Hunt % (Auto) 11.4 % 11/19/18 07:54 Eos % (Auto) 0.8 % 11/19/18 07:54 Baso % (Auto) 0.2 % 11/19/18 07:54 Immature Gran # (Auto) 0.01 K/uL (0.00-0.02) 11/19/18 07:54 Neut # (Auto) 3.89 K/uL (1.4-6.5) 11/19/18 07:54 Lymph # (Auto) 1.65 K/uL (1.2-3.4) 11/19/18 07:54 Hunt # (Auto) 0.72 K/uL (0.11-0.59) H 11/19/18 07:54 Eos # (Auto) 0.05 K/uL (0-0.5) 11/19/18 07:54 Baso # (Auto) 0.01 K/uL (0-0.2) 11/19/18 07:54 APTT 45.5 Seconds (21.0-31.0) H* 11/19/18 07:54 PTT Ratio 1.7 11/19/18 07:54 Activ Coag Time Kaolin 230 SECONDS (94-140) H 11/19/18 12:59 Sodium 135 mmol/L (136-145) L 11/19/18 07:54 Potassium 3.8 mmol/L (3.5-5.1) 11/19/18 07:54 Chloride 103 mmol/L (98-107) 11/19/18 07:54 Carbon Dioxide 25 mmol/L (21-32) 11/19/18 07:54 Anion Gap 7.0 (3-11) 11/19/18 07:54 BUN 6 mg/dl (7-18) L 11/19/18 07:54 Creatinine 0.66 mg/dl (0.6-1.2) 11/19/18 07:54 Est Cr Clr Drug Dosing 125.7 ml/min 11/19/18 07:54 Est GFR ( Amer) 123.6 11/19/18 07:54 Est GFR (Non-Af Amer) 106.7 11/19/18 07:54 BUN/Creatinine Ratio 9.5 (10-20) L 11/19/18 07:54 Glucose 158 mg/dl (70-99) H 11/19/18 07:54 POC Glucose 133 (70-99) H 11/19/18 20:32 Estimat Average Glucose 166 mg/dl 11/19/18 07:54 Hemoglobin A1c 7.4 % (4.5-5.6) H 11/19/18 07:54 Calcium 8.9 mg/dl (8.5-10.1) 11/19/18 07:54 Total Bilirubin 0.3 mg/dl (0.2-1) 11/18/18 17:45 AST 29 U/L (15-37) 11/18/18 17:45 ALT 23 U/L (12-78) 11/18/18 17:45 Alkaline Phosphatase 64 U/L (45-117) 11/18/18 17:45 Troponin I 5.420 ng/ml (0-0.045) H* 11/19/18 07:54 Total Protein 8.6 gm/dl (6.4-8.2) H 11/18/18 17:45 Albumin 4.1 gm/dl (3.4-5.0) 11/18/18 17:45 Globulin 4.5 gm/dl (2.5-4.0) H 11/18/18 17:45 Albumin/Globulin Ratio 0.9 (0.9-2) 11/18/18 17:45 Lipase 110 U/L (73-393) 11/18/18 17:45 Medications Administered Acetaminophen (Tylenol) 650 mg PO Q4H PRN PRN Reason: Pain or Fever Stop: 12/18/18 20:08 Last Admin: 11/19/18 20:03 Dose: 650 mg Admin: 11/19/18 15:44 Dose: 650 mg Admin: 11/19/18 09:06 Dose: 650 mg Admin: 11/19/18 04:18 Dose: 650 mg Admin: 11/19/18 00:14 Dose: 650 mg Admin: 11/18/18 21:23 Dose: 650 mg Aspirin (Ecotrin Ectab) 81 mg PO [facility] Stop: 12/19/18 08:59 Last Admin: 11/19/18 09:04 Dose: 81 mg Atorvastatin Calcium (Lipitor) 80 mg PO QAM [facility] Stop: 12/19/18 08:59 Last Admin: 11/19/18 09:04 Dose: 80 mg Desonide (Desowen 0.05%) 1 appln EXT BID [facility] Stop: 12/18/18 20:59 Last Admin: 11/19/18 21:18 Dose: 1 appln Admin: 11/19/18 09:05 Dose: 1 appln Admin: 11/18/18 21:17 Dose: Not Given Famotidine (Pepcid) 40 mg PO PM [facility] Stop: 12/19/18 20:59 Last Admin: 11/19/18 21:17 Dose: 40 mg Fluocinonide (Lidex 0.5%) 1 appln EXT BID [place] Stop: 12/18/18 20:59 Last Admin: 11/19/18 21:17 Dose: 1 appln Admin: 11/19/18 10:13 Dose: 1 appln Admin: 11/18/18 21:22 Dose: 1 appln Sodium Chloride (Nss 1000ml) 1,000 mls @ 80 mls/hr IV .[id number] [place] Stop: 12/18/18 20:08 Last Infusion: 11/19/18 02:15 Dose: 0 mls/hr Infusion: 11/19/18 02:14 Dose: 0 mls/hr Admin: 11/18/18 21:23 Dose: 80 mls/hr Insulin Aspart (Novolog Flexpen) 0 units SC ACHS [place] Stop: 12/18/18 20:59 Last Admin: 11/19/18 21:08 Dose: Not Given Admin: 11/19/18 17:44 Dose: 5 units Admin: 11/19/18 13:16 Dose: Not Given Admin: 11/19/18 09:29 Dose: Not Given Admin: 11/18/18 21:18 Dose: Not Given Labetalol HCl (Normodyne) 10 mg IV Q4 PRN PRN Reason: Hypertension Stop: 12/19/18 19:04 Last Admin: 11/19/18 20:23 Dose: 10 mg Lorazepam (Ativan) 0.5 mg PO Q8 PRN PRN Reason: Anxiety Stop: 12/18/18 20:08 Last Admin: 11/19/18 20:03 Dose: 0.5 mg Admin: 11/18/18 21:23 Dose: 0.5 mg Metoprolol Tartrate (Lopressor) 50 mg PO BID [facility] Stop: 12/19/18 20:59 Last Admin: 11/19/18 21:17 Dose: 50 mg Miscellaneous (Order Awaiting Action) 1 ea N/A QS [facility] Stop: 12/19/18 00:00 Last Admin: 11/19/18 21:44 Dose: Not Given Admin: 11/19/18 16:19 Dose: Not Given Admin: 11/19/18 09:30 Dose: Not Given Admin: 11/18/18 22:21 Dose: Not Given Morphine Sulfate (Morphine Sulfate) 2 mg IV Q30M PRN PRN Reason: Chest Pain Stop: 12/02/18 20:08 Last Admin: 11/19/18 21:14 Dose: 2 mg Ondansetron HCl (Zofran) 4 mg IV Q6H PRN PRN Reason: Nausea Stop: 12/18/18 20:08 Last Admin: 11/19/18 14:51 Dose: 4 mg Pantoprazole Sodium (Protonix) 40 mg PO DAILY [facility] Stop: 12/19/18 08:59 Last Admin: 11/19/18 09:01 Dose: 40 mg Ticagrelor (Brilinta) 90 mg PO BID [facility] Stop: 12/19/18 22:59 Last Admin: 11/19/18 21:17 Dose: 90 mg Valacyclovir HCl (Valtrex) 500 mg PO BID [place] Stop: 11/28/18 20:59 Last Admin: 11/19/18 21:13 Dose: Not Given Admin: 11/19/18 09:02 Dose: 500 mg Admin: 11/18/18 21:18 Dose: Not Given Discontinued Medications Al Hydrox/Mg Hydrox/Simethicone () 1 dose PO ONE ONE Stop: 11/18/18 16:20 Last Admin: 11/18/18 16:51 Dose: 1 dose Aspirin (Aspirin) 324 mg PO NOW STA Stop: 11/18/18 16:20 Last Admin: 11/18/18 16:38 Dose: Not Given Famotidine (Pepcid) 40 mg PO DAILY [facility] Stop: 12/19/18 08:59 Last Admin: 11/19/18 09:32 Dose: Not Given Fentanyl Citrate (Fentanyl Citrate) 50 mcg IV NOW STA Stop: 11/18/18 18:39 Last Admin: 11/18/18 18:53 Dose: 50 mcg Fentanyl Citrate (Fentanyl Citrate) Confirm Administered Dose 100 mcg .ROUTE .STK-MED ONE Stop: 11/19/18 11:57 Last Admin: 11/19/18 13:10 Dose: 100 mcg Fentanyl Citrate (Fentanyl Citrate) Confirm Administered Dose 100 mcg .ROUTE .STK-MED ONE Stop: 11/19/18 12:40 Last Increment: 11/19/18 13:08 Dose: 25 mcg Heparin Sodium (Porcine) (Heparin Iv Bolus ([place] Use Only)) Confirm Administered Dose 10,000 units .ROUTE .STK-MED ONE Stop: 11/19/18 11:57 Last Admin: 11/19/18 13:07 Dose: 8,000 units Heparin Sodium/Dextrose () 1 ea N/A NOW STA; Protocol Stop: 11/18/18 18:24 Last Admin: 11/18/18 19:04 Dose: Not Given Heparin Sodium/Dextrose (Heparin Sodium/Dextrose) Confirm Administered Dose 25, 000 units IV .STK-MED ONE Stop: 11/18/18 19:02 Last Admin: 11/18/18 19:02 Dose: 18 ml Heparin Sodium/Sodium Chloride (Heparin Sod/Nss 2 Units/Ml) Confirm Administered Dose 3,000 units IV .STK-MED ONE Stop: 11/19/18 11:57 Last Admin: 11/19/18 13:07 Dose: 3,000 units Sodium Chloride (Nss 1000ml) 1,000 mls @ 999 mls/hr IV .Q1H1M ONE Stop: 11/18/18 17:19 Last Infusion: 11/18/18 19:27 Dose: 0 mls/hr Admin: 11/18/18 17:55 Dose: 999 mls/hr Heparin Sodium/Dextrose (Heparin Sodium/Dextrose) 25,000 units in 500 mls @ 22 mls/hr IV .[id number] [facility]; Protocol Stop: 12/18/18 20:22 Last Titration: 11/19/18 13:53 Dose: 0 units/hr, 0 mls/hr Titration: 11/19/18 08:44 Dose: 1,100 units/hr, 22 mls/hr Titration: 11/19/18 01:38 Dose: 1,050 units/hr, 21 mls/hr Admin: 11/18/18 21:22 Dose: 900 units/hr, 18 mls/hr Nitroglycerin/Dextrose (Nitroglycerin/D5w 100 Mcg/Ml) 250 mls @ 6 mls/hr IV .Q24H PRN; Protocol PRN Reason: TITRATE Stop: 12/18/18 23:35 Last Titration: 11/19/18 13:53 Dose: 0 mcg/min, 0 mls/hr Admin: 11/19/18 00:17 Dose: 10 mcg/min, 6 mls/hr Heparin Sodium (Porcine) 4,500 (units/ Syringe) 4.5 mls @ 1 mls/min IV TODAY@ 0145 ONE Stop: 11/19/18 01:49 Last Admin: 11/19/18 01:51 Dose: 1 mls/min Heparin Sodium (Porcine) 3,000 (units/ Syringe) 3 mls @ 1 mls/min IV ONE ONE Stop: 11/19/18 09:02 Last Admin: 11/19/18 10:14 Dose: 1 mls/min Sodium Chloride (Nss 1000ml) 1,000 mls @ 100 mls/hr IV .Q10H [place] Stop: 11/19/18 18:44 Last Admin: 11/19/18 14:36 Dose: 100 mls/hr Labetalol HCl (Normodyne) 10 mg IV NOW STA Stop: 11/19/18 15:33 Last Admin: 11/19/18 16:19 Dose: Not Given Lidocaine HCl (Xylocaine 1% (Local)) Confirm Administered Dose 20 ml .ROUTE .STK -MED ONE Stop: 11/19/18 12:23 Last Admin: 11/19/18 13:08 Dose: 20 ml Losartan Potassium (Cozaar) 50 mg PO DAILY [place] Stop: 12/19/18 08:59 Last Admin: 11/19/18 09:03 Dose: 50 mg Losartan Potassium (Cozaar) 50 mg PO ONE ONE Stop: 11/19/18 15:36 Last Admin: 11/19/18 16:20 Dose: 50 mg Metoprolol Tartrate (Lopressor) 5 mg IV NOW STA Stop: 11/18/18 18:30 Last Admin: 11/18/18 18:53 Dose: 5 mg Metoprolol Tartrate (Lopressor) 25 mg PO BID [facility] Stop: 12/18/18 20:59 Last Admin: 11/19/18 09:04 Dose: 25 mg Admin: 11/18/18 21:23 Dose: 25 mg Midazolam HCl (Versed) Confirm Administered Dose 2 mg .ROUTE .STK-MED ONE Stop: 11/19/18 11:57 Last Admin: 11/19/18 13:08 Dose: 2 mg Midazolam HCl (Versed) Confirm Administered Dose 2 mg .ROUTE .STK-MED ONE Stop: 11/19/18 12:39 Last Increment: 11/19/18 13:08 Dose: 1 mg Morphine Sulfate (Morphine Sulfate) 4 mg IV NOW [facility] Stop: 11/18/18 18:34 Last Admin: 11/18/18 18:45 Dose: Not Given Morphine Sulfate (Morphine Sulfate) Confirm Administered Dose 4 mg .ROUTE .STK- MED ONE Stop: 11/19/18 21:10 Last Admin: 11/19/18 21:16 Dose: Not Given Nicardipine HCl (Cardene) Confirm Administered Dose 25 mg .ROUTE .STK-MED ONE Stop: 11/19/18 11:57 Last Admin: 11/19/18 13:06 Dose: 25 mg Nitroglycerin (Nitrostat) 0.4 mg SL NOW STA Stop: 11/18/18 17:06 Last Admin: 11/18/18 17:55 Dose: 0.4 mg Nitroglycerin (Nitro-Bid 2%) 2 inch EXT Q6H [facility] Stop: 12/18/18 19:14 Last Admin: 11/18/18 19:17 Dose: 2 inch Nitroglycerin/Dextrose (Nitroglycerin/D5w 100 Mcg/Ml 20ml Syringe) Confirm Administered Dose 2,000 mcg .ROUTE .STK-MED ONE Stop: 11/19/18 11:57 Last Admin: 11/19/18 13:08 Dose: 2,000 mcg Ticagrelor (Brilinta) Confirm Administered Dose 180 mg PO .STK-MED ONE Stop: 11/19/18 13:20 Last Admin: 11/19/18 13:25 Dose: 180 mg Resident Activity Tracking Resident Involvement: Resident Care Provided Care Provided: Adult [facility] Medicine
[2018-11-19] MEDS ORDERED: LABETALOL HCL IV 5 MG/ML 20ML IV PRN (19:05)
[2018-11-19] MEDS: LORazepam 0.5 MG TAB PO PRN (20:03)
[2018-11-19] MEDS ORDERED: FAMOTIDINE 20 MG TAB PO SCH (21:00)
[2018-11-19] MEDS ORDERED: MoRPHine SULFATE 4 MG/ML 1 ML CARP\\VIAL ONE (21:09)
[2018-11-19] MEDS: METOPROLOL TARTRATE 50 MG TAB PO SCH (21:17)
[2018-11-19] MEDS: TICAGRELOR 90 MG TAB PO SCH (21:17)
[2018-11-20] MEDS ORDERED: METOPROLOL TARTRATE 50 MG TAB PO SCH
[2018-11-20] MEDS ORDERED: ATORVASTATIN 40 MG TAB PO SCH
[2018-11-20] MEDS ORDERED: TICAGRELOR 90 MG TAB PO SCH
[2018-11-20] MEDS ORDERED: ASPIRIN 81 MG ECTAB PO SCH
[2018-11-20] MEDS: PANTOprazole 40 MG TAB PO SCH (07:36)
[2018-11-20 08:16] LABS: BUN Creatinine Ratio 10.3 (10-20); Calcium 8.9 mg/dl (8.5-10.1); Creatinine Clr Calc Pharmacy 124.5 ml/min; Est GFR (African American) 124.3; Est GFR (Non-African American) 107.2; Magnesium 2.1 mg/dl (1.8-2.4); Potassium 3.9 mmol/L (3.5-5.1)
[2018-11-20] MEDS ORDERED: LOSARTAN POTASSIUM 50 MG TAB PO SCH ×2 (09:00)
[2018-11-20] MEDS: INSULIN ASPART 100 UNITS/ML 3 ML PEN SC SCH ×2 (09:51→14:40)
[2018-11-20] MEDS: ASPIRIN 81 MG ECTAB PO SCH (09:53)
[2018-11-20] MEDS: ATORVASTATIN 40 MG TAB PO SCH (09:53)
[2018-11-20] MEDS: TICAGRELOR 90 MG TAB PO SCH (09:53)
[2018-11-20] MEDS: VALACYCLOVIR HCL 500 MG TABLET PO SCH (09:55)
[2018-11-20] MEDS: METOPROLOL TARTRATE 50 MG TAB PO SCH (09:55)
[2018-11-20] MEDS: DESONIDE CR 15 GM TUBE EXT SCH (10:01)
[2018-11-20] MEDS: FLUOCINONIDE 0.05% OINT 15 GM TUBE EXT SCH (10:01)
--- NOTE | 2018-11-20 11:01 | Cardiology Progress Note ---
Date of Service November 20, 2018 Assessment & Plan (1) Non-ST elevation [place] (NSTEMI): 2. Hypertension 3. Type 2 diabetes on oral therapy 4. GERD CP free this AM. BP better controlled. Electrically stable. From a cardiac standpoint OK for discharge today. -- Home on ASA/Ticagrelor, continue DAPT for at least 1 year. -- Continue HAWA/Beta-aicha ��Continue high intensity statin. Follow-up with me in 2-3 weeks. Subjective Episode of chest pain overnight in the setting of BP to 170/110s. Relieved with morphine, tylenol, ativan, labetalol. This morning feeling well. No other new concerns. Tele reviewed -- no events. Review of Systems All systems reviewed & are unremarkable except as noted in HPI & below Physical Exam 2 Vital Signs (Past 24 Hours): Last Vital Signs Temp 37 C 11/20/18 07:57 Pulse 83 11/20/18 07:57 Resp 18 11/20/18 07:57 BP 139/91 11/20/18 07:57 Pulse Ox 96 11/20/18 07:57 Constitutional: WD/WN, vitals as above Eyes: + anicteric sclerae Neck: trachea midline, no thyromegaly Respiratory: normal respiratory effort, lungs clear to auscultation Cardiovascular: RRR, no murmur, no edema right radial artery -- mild tenderness. no hematoma. intact distal pulse/sensation. Gastrointestinal (Abdomen): normal bowel sounds, soft, nontender, no hepatosplenomegaly Neurologic: moves all extremities Psychiatric: A+Ox3, euthymic affect
--- NOTE | 2018-11-20 13:20 | Discharge Summary ---
Date of Service November 20, 2018 Admission HPI Per Admitting Provider 43 yo female with medical history of DM type II, HTN and atopic dermatitis presented to the ED today c/o epigastric burning sensation that started this morning. The patient woke up and felt normal. Shortly after eating breakfast and drinking her coffee she experienced some burning epigastric discomfort. It felt similar to her GERD and so she took her PPI and some Maalox. However, the pain did not go away like it normally does. She then had some palpitations, felt like her heart was racing so she checked her sugar and it was slightly high. The pain persisted, it radiated to her left arm and neck and jaw and she had some diaphoresis. She felt like her breathing was a little labored which was unusual. Despite these symptoms she chose to go to classes, she is working on her PhD in behavioral health. She was able to sit through class but the symptoms persisted. She went to [facility] after class and they instructed her to com to the ED. In the ED she was markedly hypertensive and had some tachycardia. EKG showed sinus tach and there were some non-specific ST changes, no ST elevations seen. CXR was normal. Troponin was 2.2 initially. Treatment was started for NSTEMI with heparin drip, Nitro paste. Dr. Garcia was contacted since the patient was having active chest pain with an elevated troponin, he requested that she be stabilized in terms of blood pressure and chest pain, would plan for heart catheterization tomorrow. The patient has never had chest pain or pressure either at rest or on exertion. She denies any family history of coronary disease. She had a history of DM type II since 2010. She follows with endocrinology and she says she cannot recall her last HbA1c but she knows it was elevated. She is on Janumet and Glipizide and her occupational medicine officer recently prescribed her Jardianz but she had not started this. She has a long history of smoking, currently on Chantix, trying to quit again. At her heaviest, she would smoke 1/2 to 1 ppd. Has a history of dyslipidemia on Zocor. Principal Diagnosis NSTEMI Discharge Exam Subjective Exam: Pt wa seen and examined at bedside. Request a less carb breakfast. She is doing well. Tele showed sinus rhythm in the 80s. She did not report any chest pain at present and reported an improvment of her symptoms. She did ask me if it was possible to take transdermal ASA instead of oral. I did not have an evidence based answer for her on the spot. She verbalized to me who her PCP was, and asked whether she could start Janumet and another IBS med when she left the hospital - I advised to wait around a week to make sure she doesn't have a reaction to any of her new medications. All questions answered. Pt's partner was also present in the room. ROS: no SOB, no dyspnea on exertion, no palpitations, no fevers, no chills, no nausea, no vomiting, no diarrhea, no dysuria, no rash. Constitutional WD/WN, vitals as above no acute distress Eyes + anicteric sclerae, PERRL and EOM intact bilaterally ENMT external ear and nose normal, oropharynx normal Neck trachea midline, no thyromegaly Respiratory normal respiratory effort, lungs clear to auscultation Cardiovascular RRR, no murmur, no edema Rate/Rhythm: regular rhythm Heart Sounds: normal S1 and normal S2; no murmur Vessels: normal peripheral pulses; no JVD Gastrointestinal (Abdomen) normal bowel sounds, soft, nontender, no hepatosplenomegaly Musculoskeletal no cyanosis or clubbing, extremities motor strength 5/5 Head/Neck/Chest: normocephalic and head atraumatic Skin no rashes, warm and dry Neurologic PERRL, EOMI, accommodation nl, no face palsy, no dysarthria CN's II-XI intact bilaterally, moves all extremities and awake Psychiatric A+Ox3, euthymic affect Orientation: alert and oriented x 3 Lymphatic no cervical or axillary lymphadenopathy Discharge Data Allergies Allergy/AdvReac Type Severity Reaction Status Date / Time codeine Allergy Hives Unverified 11/18/18 16:36 Consultations 11/18/18 18:42 ED Decision to Admit Stat 11/18/18 20:09 Consult Cardiology Routine Procedures Performed Operation Date: 11/19/18 11:00 Actual Procedures s Drug Eluting Stent SGl Vessel(Not Applicable) - Garry Garcia MD s Cineradiography w/Routine Exam - Garry Garcia MD p Cath, Left with Cors and Vent(Not Applicable) - Garry Garcia MD s IVUS Coronary Single Vessel(Not Applicable) - Garry Garcia MD Ordered Studies 11/19/18 07:48 CL Cath Imgs for PACS use only Routine 11/19/18 13:41 CL IVUS Coronary Single Vessel Routine Hospital Course (1) Non-ST elevation [place] (NSTEMI): 43 yo F with h/o HTN, HLD, T2DM presenting with history of chest pain, admitted with NSTEMI NSTEMI - Catheterization: 70-80% LAD occlusion, Drug eluting stent was placed in LAD, - Change Simvastatin to 80mg daily Lipitor and continue on discharge. - for BP management add on Metorpolol Tartrate 50m BID. - Will need dual antiplatele therapy for 1 year : ASA 81mg daily and Ticagrelor 90mg BID x 1 year. - Will need to be vigilent about signs and symptoms of gastritis. - PCP follow up within one week and cards follow up within 3 weeks. - Will aslo increase Losartan from 50mg daily to 100mg daily. (2) Hypertension: BP management with Metoprolol and Losartan as above. If not well controlled consider adding on HCTZ or CCB such as Amlodipine. (3) Hyperlipidemia: (4) Type 2 diabetes mellitus: poorly controlled per patient last A1c was 8.7 in Jul. according to patient on Glipizide at home Pt was recently given an Rx for Janumet - she was advised she can start taking it as soon as she is confident her chest pain has resolved - I estimated within one week. counseled patient on importance of diabetic management (5) History of tobacco use: currently on Chantix Spoke at length about not restarting smoking. (6) GERD (gastroesophageal reflux disease): Continue Pepcid, Protonix, pt will need close follow up because she needs one year of ASA. Total Time Total Time Spent Total Time Spent (In Minutes): 34 Discharge Plan Discharge Items Patient Disposition: Home - Self-Care Reason For Visit: NSTEMI Discharge Diagnosis: NSTEMI Discharge Goals: Decrease discomfort, Diagnostic testing, Improve disease control, Improve function, Increase independence, Improve nutritional status and Learn about illness Activity: Resume your previous activity Non-emergency contact: Primary Care Provider and Magnetic Healer Call non-emergency contact if: you have any medication questions, your symptoms worsen and your pain is not controlled Follow-up/Referrals: Garry Garcia MD [Physician] - 12/07/18 12:45 pm (A follow-up appointment has been made on your behalf with Dr. Garcia at [facility] Cardiology office. Please call the Cardiology office with any questions or concerns. Thank you!) Emma Springer [Outside Practitioners] - 11/25/18 9:20 am (A follow-up appointment with your PCP has been made on your behalf. If you need to change the appointment time or have questions or concerns, please call [facility] directly. Thank you! ) Diet: Heart Healthy [facility] Provider Instructions: You were admitted to the hospital for concerns about symptoms related to a blockage in your heart. A catheterization found a 70-80% blockage of your LAD artery in your heart. A drug eluting stent was placed in your heart. Upon discharge from the hospital several medications were recommended and you have been given prescriptions for the medications. Aspirin and Brillinta are very important medications that you will need to take for one year to make sure the stent in your heart is kept open. Please take these medications as prescribed. Your cholesterol medication Simvastatin has been changed to Atorvastatin. Atorvastatin is a higher intensity statin. We recommend taking this new medication instead of Simvastatin. Your losartan would change from 50mg daily to 100mg daily to further help with blood pressure and protect your kidneys. Please take this new dosage of medication. You have been started on Metoprolol tartrate 50mg twice a day. Metoprolol tartrate is used to control your heart rate and lower your blood pressure. Please take this medication as prescribed. You may stop taking Coenzyme Q10 as the evidence of benefit is not conclusive. An outpatient physician also advised you to start Janumet, you may resume this medication once you are confident you are back to your baseline health - you should typically be confident starting any new medications one week after hospital discharge. Return to the hospital if you experience a worsening of your chest pain. Follow up with your Primary Care Doctor and Magnetic Healer will be arranged for you. Please keep these appointments. Information on your new medications will be printed for you on discharge. Please read this information carefully. Prescriptions: New ticagrelor [Brilinta] 90 mg Tablet 90 mg PO BID 30 Days Qty: 60 RF: 0 losartan 50 mg Tablet 100 mg PO DAILY 30 Days Qty: 60 RF: 0 atorvastatin 40 mg Tablet 80 mg PO QAM 30 Days Qty: 60 RF: 0 aspirin [Ecotrin Low Strength] 81 mg Tablet,Delayed Release (Dr/Ec) 81 mg PO QAM 30 Days Qty: 30 RF: 0 metoprolol tartrate 50 mg Tablet 50 mg PO BID 30 Days Qty: 60 RF: 0 Continue multivitamin Tablet 1 tab PO DAILY RF: 0 desonide [DesOwen] 0.05 % Cream 1 applic TOPICAL BID RF: 0 famotidine [Pepcid] 40 mg Tablet 40 mg PO DAILY RF: 0 pimecrolimus [Elidel] 1 % Cream 1 applic TOPICAL BID RF: 0 fluocinonide 0.05 % Ointment 1 applic TOPICAL BID RF: 0 valacyclovir 500 mg Tablet 500 mg PO BID RF: 0 glipizide 2.5 mg Tablet Extended Release 24hr 2.5 mg PO DAILY RF: 0 pantoprazole 40 mg Tablet,Delayed Release (Dr/Ec) 40 mg PO DAILY RF: 0 ciclopirox 1 % Shampoo 5 ml topical DAILY RF: 0 varenicline [Chantix] 1 mg Tablet 1 mg PO BID RF: 0 sitagliptin-metformin [Janumet] 50-500 mg Tablet 1 tab PO BID RF: 0 Discontinued losartan 50 mg Tablet 50 mg PO DAILY RF: 0 coenzyme Q10 [Co Q-10] 10 mg Capsule 10 mg PO DAILY RF: 0 simvastatin 40 mg Tablet 40 mg PO DAILY RF: 0 simvastatin 20 mg Tablet 20 mg PO DAILY RF: 0 Stand-Alone Forms: My [facility]/Other Patient Handouts: Atorvastatin Calcium Oral tablet, Ticagrelor Oral tablet, Metoprolol Tartrate Oral tablet, Losartan Potassium Oral tablet, Aspirin Oral tablet Discharge Orders: Discharge Order (Routine); Ordered 11/20/18 Ordered By: Deshawn Horner Admission Data Admit Date/Time: 11/18/18 19:06 Attending Provider: Nikko Shah Admit Provider: Sanchez Levy Primary Care Provider: [facility] Other Providers: Sanchez Levy ; Garry Garcia Service: Telemetry Other Interventions: Discharge Summary Assessment (RN) Last Done: 11/20/18 13:28 DC Date/Time DO NOT enter until pt leaves facility: 11/20/18 14:41 Supervising Physician Co-Signing Physician Notes I personally examined the patient and verified all vidal points of history and exam, discussed case, and agree with decision making with Dr Horner Feeling okay no chest pain. Discussed discharge medications, answered questions to the best my ability, she is ready to go home. Vitals noted, in general she is awake and alert pleasant no distress. HEENT normocephalic atraumatic mucous membranes are moist. Breathing is unlabored no accessory muscle use good effort. Skin shows no rashes no pallor or icterus. [place]/coronary artery disease�status post cath and stenting, med management, lifestyle change, better diabetes control, smoke cessation, stable for home today, otherwise as above. Resident Activity Tracking Resident Involvement: Resident Care Provided Care Provided: Adult Hospital Medicine
== END 2018-11-20 14:41 | disposition home or self-care (01) | DRG 247 ==
LOC: ED 16:03 → 2S 19:02 → SUATTDRO 19:02 → 2S 19:35